=== PATIENT | male | born 1955 | race Caucasian/White ===

== ENCOUNTER 2020-04-01 04:07 | Inpatient (IN) | payer MEDICAID, MEDICARE ==
--- NOTE | 2020-04-01 04:27 | EDM.PDOC ---
ED HPI GENERAL MEDICAL PROBLEM - General Chief Complaint: Respiratory Problem Stated Complaint: [facility] Time Seen by Provider: 04/01/20 04:16 Source of Information: Reports: Patient, EMS, RN Notes Reviewed History Limitations: Reports: No Limitations - History of Present Illness INITIAL COMMENTS - FREE TEXT/NARRATIVE: 65-year-old gentleman presents emergency department today via EMS services for increasing shortness of breath, he has known history of chronic obstructive pulmonary disease on chronic prednisone however he has stopped taking this medication because it believes it causes him palpitations and refuses any steroid treatment at this time. He did receive an albuterol treatment at home DuoNeb in route arrived on CPAP however now is using oxygen via nasal cannula - Related Data Allergies Allergy/AdvReac Type Severity Reaction Status Date / Time varenicline tartrate Allergy Airway Verified 04/01/20 04:24 [From Chantix] Tightness Home Meds: Home Meds Albuterol [Ventolin HFA] 8 gm IH Q4HR PRN 12/15/15 [History] Albuterol/Ipratropium [Take Home: Albuterol/Ipratropium, 4 Neb Pack] 1 dose INH Q4HR 12/15/15 [History] Budesonide/Formoterol Fumarate [Symbicort 80-4.5 Mcg Inhaler] 2 puff INH BID 06/22 [History] Nicotine [Nicoderm CQ] 21 patch TD DAILY 12/15/15 [History] Past Medical History Respiratory History: Reports: COPD Dermatologic History: Reports: Other (See Below) Other Dermatologic History: skin problem - Infectious Disease History Infectious Disease History: Reports: Chicken Pox, Measles, Mumps Social & Family History - Tobacco Use Smoking Status *Q: Current Every Day Smoker ED ROS GENERAL - Review of Systems Review Of Systems: See Below Constitutional: Denies: Fever HEENT: Reports: No Symptoms Respiratory: Reports: Shortness of Breath, Wheezing, Sputum Cardiovascular: Reports: Dyspnea on Exertion GI/Abdominal: Reports: No Symptoms : Reports: No Symptoms ED EXAM, GENERAL - Physical Exam Exam: See Below General Appearance: Alert, Mild Distress Respiratory/Chest: Respiratory Distress (1 and 2 word sentences), Decreased Breath Sounds, Accessory Muscle Use. No: Wheezing Cardiovascular: Regular Rate, Rhythm, No Murmur GI/Abdominal: Soft, Non-Tender, Hernia (Umbilical) Course - Vital Signs Last Recorded V/S: Last Vital Signs Temp 98.3 F 04/01/20 04:17 Pulse 100 04/01/20 05:40 Resp 20 04/01/20 05:40 BP 160/94 H 04/01/20 05:40 Pulse Ox 90 L 04/01/20 05:40 - Orders/Labs/Meds Orders: Active Orders 24 hr Category Date Time Status EKG Documentation Completion [RC] ASDIRECTED Care 04/01/20 04:18 Active Peripheral IV Care [RC] . DIRECTED Care 04/01/20 05:38 Ordered RT Aerosol Therapy [RC] ASDIRECTED Care 04/01/20 05:40 Ordered Chest 2V [CR] Urgent Exams 04/01/20 04:17 Taken Sodium Chloride 0.9% @ 125 MLS/HR (1000ml) Med 04/01/20 05:38 Ordered Sodium Chloride 0.9% [Normal Saline] 1,000 ml IV ASDIRECTED Sodium Chloride 0.9% [Saline Flush] Med 04/01/20 05:38 Ordered 10 ml FLUSH ASDIRECTED PRN Peripheral IV Insertion Adult [OM.PC] Urgent Oth 04/01/20 05:38 Ordered EKG 12 Lead [EK] Urgent Ther 04/01/20 04:17 Ordered Medication Orders Sodium Chloride (Normal Saline) 1,000 mls @ 125 mls/hr IV ASDIRECTED ONE Stop: 04/01/20 13:37 Sodium Chloride (Saline Flush) 10 ml FLUSH ASDIRECTED PRN PRN Reason: Keep Vein Open Labs: Laboratory Tests 04/01/20 04/01/20 Range/Units 04:25 04:25 WBC 12.4 H (4.5-11.0) K/uL RBC 5.57 (4.30-5.90) M/uL Hgb 16.6 H (12.0-15.0) g/dL Hct 53.3 (40.0-54.0) % MCV 96 (80-98) fL MCH 30 (27-31) pg MCHC 31 L (32-36) % Plt Count 200 (150-400) K/uL Neut % (Auto) 68 H (36-66) % Lymph % (Auto) 16 L (24-44) % [place] % (Auto) 7 H (2-6) % Eos % (Auto) 8 H (2-4) % Baso % (Auto) 1 (0-1) % Sodium 140 (140-148) mmol/L Potassium 4.4 (3.6-5.2) mmol/L Chloride 103 (100-108) mmol/L Carbon Dioxide 28 (21-32) mmol/L Anion Gap 9.2 (5.0-14.0) mmol/L BUN 16 (7-18) mg/dL Creatinine 1.1 (0.8-1.3) mg/dL Est Cr Clr Drug Dosing 68.21 mL/min Estimated GFR (MDRD) > 60 (>60) Glucose 132 H (74-106) mg/dL Calcium 8.6 (8.5-10.1) mg/dL Total Bilirubin 0.2 (0.2-1.0) mg/dL AST 17 (15-37) U/L ALT 31 (12-78) U/L Alkaline Phosphatase 95 (46-116) U/L Troponin I < 0.017 (0.000-0.056) ng/mL Total Protein 7.2 (6.4-8.2) g/dL Albumin 3.5 (3.4-5.0) g/dL Globulin 3.7 H (2.3-3.5) g/dL Albumin/Globulin Ratio 1.0 L (1.2-2.2) Meds: Medications Generic Name Dose Route Start Last Admin Trade Name Freq PRN Reason Stop Dose Admin Sodium Chloride 1,000 mls @ 125 mls/hr 04/01/20 05:38 Normal Saline IV 04/01/20 13:37 ASDIRECTED ONE Sodium Chloride 10 ml 04/01/20 05:38 Saline Flush FLUSH ASDIRECTED PRN Keep Vein Open Discontinued Medications Generic Name Dose Route Start Last Admin Trade Name Freq PRN Reason Stop Dose Admin Albuterol/Ipratropium 3 ml 04/01/20 05:39 04/01/20 05:51 Duoneb 3.0-0.5 Mg/3 Ml NEB 04/01/20 05:40 3 ml ONETIME ONE Administration Doxycycline Hyclate 100 mg 04/01/20 05:39 04/01/20 05:50 Vibramycin PO 04/01/20 05:40 100 mg ONETIME ONE Administration Methylprednisolone Sodium Succinate 125 mg 04/01/20 05:39 Solu-Medrol IVPUSH 04/01/20 05:40 ONETIME ONE Departure - Departure Time of Disposition: 05:56 Disposition: Admitted As Inpatient 65 Condition: Fair Clinical Impression: COPD exacerbation - Discharge Information Referrals: Percy Sidhu MD [Primary Care Provider] - Forms: ED Department Discharge Sepsis Event Note - Evaluation Sepsis Screening Result: No Definite Risk - Focused Exam Vital Signs: Vital Signs Temp Pulse Resp BP Pulse Ox 04/01/20 05:40 100 20 160/94 H 90 L 04/01/20 05:11 94 17 138/81 94 L 04/01/20 05:04 94 18 138/82 96 04/01/20 04:17 98.3 F 97 20 185/94 H 96 Date Exam was Performed: 04/01/20 Time Exam was Performed: 05:54 - My Orders Last 24 Hours: My Active Orders 04/01/20 04:17 Chest 2V [CR] Urgent EKG 12 Lead [EK] Urgent 04/01/20 04:18 EKG Documentation Completion [RC] ASDIRECTED 04/01/20 05:38 Peripheral IV Care [RC] . DIRECTED Sodium Chloride 0.9% @ 125 MLS/HR (1000ml) Sodium Chloride 0.9% [Normal Saline] 1,000 ml IV ASDIRECTED Sodium Chloride 0.9% [Saline Flush] 10 ml FLUSH ASDIRECTED PRN Peripheral IV Insertion Adult [OM.PC] Urgent 04/01/20 05:40 RT Aerosol Therapy [RC] ASDIRECTED - Assessment/Plan Last 24 Hours: My Active Orders 04/01/20 04:17 Chest 2V [CR] Urgent EKG 12 Lead [EK] Urgent 04/01/20 04:18 EKG Documentation Completion [RC] ASDIRECTED 04/01/20 05:38 Peripheral IV Care [RC] . DIRECTED Sodium Chloride 0.9% @ 125 MLS/HR (1000ml) Sodium Chloride 0.9% [Normal Saline] 1,000 ml IV ASDIRECTED Sodium Chloride 0.9% [Saline Flush] 10 ml FLUSH ASDIRECTED PRN Peripheral IV Insertion Adult [OM.PC] Urgent 04/01/20 05:40 RT Aerosol Therapy [RC] ASDIRECTED Plan: Assessment Acuity = acute Site and laterality = COPD exacerbation with hypoxia Etiology = unknown Manifestations = hypoxic Location of injury = Home Lab values = WBC elevated 12.4 consistent leukocytosis, CMP unremarkable troponin is negative EKG demonstrates a sinus rhythm no signs of ST elevation or depression chest x-ray I did review films myself I cannot appreciate any acute process, the official read from radiology is pending Plan Thus far has been given 125 mg Solu-Medrol 100 mg doxycycline DuoNeb while in the emergency department he maintained his oxygen saturation at rest however with any amount of exertion he will become hypoxic. Call discussed case with hospitalist on-call at [phone] he kindly agreed to come and evaluate the patient emergency department for admission This note was dictated using [employer] voice recognition software please call with any questions on syntax or grammar.
[2020-04-01] MEDS ORDERED: Sodium Chloride 0.9% 1,000 ML IV ONE (05:38)
[2020-04-01] MEDS ORDERED: Sodium Chloride 0.9% 10 ML Syringe FLUSH PRN ×2 (05:38→08:31)
[2020-04-01] MEDS ORDERED: methylPREDNISolone Sodium Succinate 125 MG/2 ML SDV IVPUSH ONE (05:39)
[2020-04-01] MEDS ORDERED: Albuterol/Ipratropium 3.0-0.5 MG/3 ML Neb Soln NEB ONE (05:39)
[2020-04-01] MEDS ORDERED: Doxycycline 100 MG Cap PO ONE (05:39)
--- NOTE | 2020-04-01 07:37 | PCM.HP.2 ---
H&P History of Present Illness - General Date of Service: 04/01/20 Admit Problem/Dx: Admission Diagnosis/Problem Admission Diagnosis/Problem Hypoxia Source of Information: Patient, Provider, RN Notes Reviewed History Limitations: Reports: No Limitations - History of Present Illness Initial Comments - Free Text/Narative: Mr. Schrader is a 65-year-old gentleman who was admitted through the emergency department with hypoxia and shortness of breath secondary to COPD exacerbation. He has a longstanding history of COPD as well as smoking and continued to smoke up until the time of admission. He does not yet require use of supplemental oxygen at home. He felt well through the day yesterday but in the late evening noted progressive increase in shortness of breath. He presented to the emergency department early this morning and was found to be hypoxic. White blood cell count is modestly elevated, chest x-ray shows no obvious infiltrates. He was felt to have probable COPD exacerbation and was started on doxycycline, nebulizer therapy, and Solu-Medrol. Despite these interventions he experienced persistent hypoxia and has required use of supplemental oxygen while in the emergency department. - Related Data Allergies/Adverse Reactions: Allergies Allergy/AdvReac Type Severity Reaction Status Date / Time varenicline tartrate Allergy Airway Verified 04/01/20 04:24 [From Chantix] Tightness Home Medications: Home Meds Albuterol [Ventolin HFA] 8 gm IH Q4HR PRN 12/15/15 [History] Albuterol/Ipratropium [Take Home: Albuterol/Ipratropium, 4 Neb Pack] 1 dose INH Q4HR 12/15/15 [History] Budesonide/Formoterol Fumarate [Symbicort 80-4.5 Mcg Inhaler] 2 puff INH BID 06/22 [History] Nicotine [Nicoderm CQ] 21 patch TD DAILY 12/15/15 [History] Past Medical History HEENT History: Reports: None Cardiovascular History: Reports: None Respiratory History: Reports: COPD Gastrointestinal History: Reports: Other (See Below) Other Gastrointestinal History: umbilical herina Genitourinary History: Reports: None Musculoskeletal History: Reports: Arthritis Neurological History: Reports: None Endocrine/Metabolic History: Reports: None Hematologic History: Reports: None Immunologic History: Reports: None Oncologic (Cancer) History: Reports: None Dermatologic History: Reports: Other (See Below) Other Dermatologic History: skin problem - Infectious Disease History Infectious Disease History: Reports: Chicken Pox, Measles, Mumps Social & Family History - Tobacco Use Smoking Status *Q: Current Every Day Smoker Years of Tobacco use: 50 Packs/Tins Daily: 0.5 - Caffeine Use Caffeine Use: Reports: Tea - Recreational Drug Use Recreational Drug Use: Yes Recreational Drug Type: Reports: Marijuana/Hashish H&P Review of Systems - Review of Systems: Review Of Systems: See Below General: Denies: Fever, Chills HEENT: Reports: No Symptoms Pulmonary: Reports: Shortness of Breath, Wheezing. Denies: Pleuritic Chest Pain , Cough, Sputum, Hemoptysis Cardiovascular: Reports: Dyspnea on Exertion, Edema. Denies: Chest Pain, Palpitations, Orthopnea, PND, Lightheadedness Gastrointestinal: Reports: No Symptoms Genitourinary: Reports: No Symptoms Musculoskeletal: Reports: No Symptoms Skin: Reports: No Symptoms Psychiatric: Reports: No Symptoms Neurological: Reports: No Symptoms Hematologic/Lymphatic: Reports: No Symptoms Immunologic: Reports: No Symptoms Exam - Exam Exam: See Below - Vital Signs Vital Signs: Last Vital Signs Temp 98.3 F 04/01/20 04:17 Pulse 85 04/01/20 07:08 Resp 18 04/01/20 07:08 BP 138/87 04/01/20 07:08 Pulse Ox 93 L 04/01/20 07:08 Weight: 215 lb - Exam Quality Assessment: Supplemental Oxygen, DVT Prophylaxis General: Alert, Oriented, Cooperative, Moderate Distress HEENT: Conjunctiva Clear, Hearing Intact, Mucosa Moist & [place], Normal Nasal Septum, Posterior Pharynx Clear, Pupils Equal Neck: Supple, Trachea Midline, +2 Carotid Pulse wo Bruit Lungs: Decreased Breath Sounds, Wheezing. No: Crackles, Rales, Rhonchi, Rub Cardiovascular: Regular Rate, Regular Rhythm, Normal S1, Normal S2. No: Systolic Murmur, Diastolic Murmur GI/Abdominal Exam: Soft, Non-Tender, No Organomegaly, No Distention Extremities: Non-Tender, No Pedal Edema Skin: Warm, Dry, Intact Neurological: Cranial Nerves Intact, Strength Equal Bilateral, Normal Speech, Normal Tone, Sensation Intact. No: Focal Deficit Neuro Extensive - Mental Status: Alert, Oriented x3, Normal Mood/Affect, Normal Cognition, Memory Intact - Patient Data Lab Results Last 24 hrs: Laboratory Results - last 24 hr 04/01/20 04/01/20 04/01/20 Range/Units 04:25 04:25 04:50 WBC 12.4 H (4.5-11.0) K/uL RBC 5.57 (4.30-5.90) M/uL Hgb 16.6 H (12.0-15.0) g/dL Hct 53.3 (40.0-54.0) % MCV 96 (80-98) fL MCH 30 (27-31) pg MCHC 31 L (32-36) % Plt Count 200 (150-400) K/uL Neut % (Auto) 68 H (36-66) % Lymph % (Auto) 16 L (24-44) % [place] % (Auto) 7 H (2-6) % Eos % (Auto) 8 H (2-4) % Baso % (Auto) 1 (0-1) % Sodium 140 (140-148) mmol/L Potassium 4.4 (3.6-5.2) mmol/L Chloride 103 (100-108) mmol/L Carbon Dioxide 28 (21-32) mmol/L Anion Gap 9.2 (5.0-14.0) mmol/L BUN 16 (7-18) mg/dL Creatinine 1.1 (0.8-1.3) mg/dL Est Cr Clr Drug Dosing 68.21 mL/min Estimated GFR (MDRD) > 60 (>60) Glucose 132 H (74-106) mg/dL Lactic Acid 1.5 (0.4-2.0) mmol/L Calcium 8.6 (8.5-10.1) mg/dL Total Bilirubin 0.2 (0.2-1.0) mg/dL AST 17 (15-37) U/L ALT 31 (12-78) U/L Alkaline Phosphatase 95 (46-116) U/L Troponin I < 0.017 (0.000-0.056) ng/mL Total Protein 7.2 (6.4-8.2) g/dL Albumin 3.5 (3.4-5.0) g/dL Globulin 3.7 H (2.3-3.5) g/dL Albumin/Globulin Ratio 1.0 L (1.2-2.2) Result Diagrams: 04/01/20 04:25 04/01/20 04:25 Sepsis Event Note - Evaluation Sepsis Screening Result: No Definite Risk - Focused Exam Vital Signs: Vital Signs Temp Pulse Resp BP Pulse Ox 04/01/20 07:08 85 18 138/87 93 L 04/01/20 06:38 88 21 H 140/90 91 L 04/01/20 06:11 88 18 158/91 H 93 L 04/01/20 05:40 100 20 160/94 H 90 L 04/01/20 05:11 94 17 138/81 94 L 04/01/20 05:04 94 18 138/82 96 04/01/20 04:17 98.3 F 97 20 185/94 H 96 Date Exam was Performed: 04/01/20 Time Exam was Performed: 07:55 *Q Meaningful Use (ADM) - VTE Risk Assess *Q Each Risk Factor Represents 1 Point: Obesity ( BMI > 25 kg/m2), Abnormal Pulmonary Function (COPD) Total Score 1 Point Risk Factors: 2 Each Risk Factor Represents 2 Points: Age 60 - 74 Years Total Score 2 Point Risk Factors: 2 Each Risk Factor Represents 3 Points: None Total Score 3 Point Risk Factors: 0 Each Risk Factor Represents 5 Points: None Total Score 5 Point Risk Factors: 0 Venous Thromboembolism Risk Factor Score *Q: 4 Problem List Initiated/Reviewed/Updated: Yes Orders Last 24hrs: Active Orders 24 hr Category Date Time Status Patient Status Manage Transfer [TRANSFER] Routine ADT 04/01/20 07:26 Ordered EKG Documentation Completion [RC] ASDIRECTED Care 04/01/20 04:18 Active Peripheral IV Care [RC] . DIRECTED Care 04/01/20 05:38 Active RT Aerosol Therapy [RC] ASDIRECTED Care 04/01/20 05:40 Active Chest 2V [CR] Urgent Exams 04/01/20 04:17 Taken Sodium Chloride 0.9% [Normal Saline] 1,000 ml Med 04/01/20 05:38 Active IV ASDIRECTED Sodium Chloride 0.9% [Saline Flush] Med 04/01/20 05:38 Active 10 ml FLUSH ASDIRECTED PRN Peripheral IV Insertion Adult [OM.PC] Urgent Oth 04/01/20 05:38 Ordered Resuscitation Status Routine Resus Stat 04/01/20 07:29 Ordered EKG 12 Lead [EK] Urgent Ther 04/01/20 04:17 Ordered Medication Orders Sodium Chloride (Normal Saline) 1,000 mls @ 125 mls/hr IV ASDIRECTED ONE Stop: 04/01/20 13:37 Last Admin: 04/01/20 06:07 Dose: 125 mls/hr Sodium Chloride (Saline Flush) 10 ml FLUSH ASDIRECTED PRN PRN Reason: Keep Vein Open Last Admin: 04/01/20 06:10 Dose: 10 ml Assessment/Plan Comment:: ASSESSMENT AND PLAN COPD EXACERBATION-specific etiology of exacerbation not apparent, probably allergy versus infection. He feels somewhat improved since arriving in the emergency department but continues to require supplemental oxygen. -Inhaler therapy -Doxycycline 100 mg IV every 12 hours -Supplemental oxygen as needed -Solu-Medrol 40 mg IV every 6 hours HYPOXIA-secondary to COPD exacerbation -Management as above MAINTENANCE ISSUES -DVT prophylaxis; Lovenox 40 mg subcu daily -GI prophylaxis; not indicated -Grande catheter; not indicated -Nutrition; 2 g sodium diet -Nicotine dependence; nicotine patch CODE STATUS-FULL CODE ADMISSION STATUS-patient will be admitted to inpatient status, expect at least a 2 night hospital stay for evaluation and management of problems as outlined above. At the time of this admission I do not reasonably expected evaluation and management of this problem will require more than a 96 hour hospital stay. DISPOSITION-anticipate discharge to home after the hospital stay. PRIMARY CARE PROVIDER-Dr. Sidhu - Mortality Measure Prognosis:: Good
[2020-04-01] MEDS ORDERED: Acetaminophen 325 MG Tab PO PRN (08:31)
[2020-04-01] MEDS ORDERED: Polyethylene Glycol 3350 Powder 17 GM Packet PO PRN (08:31)
[2020-04-01] MEDS ORDERED: Ondansetron 4 MG/2 ML SDV IV PRN (08:31)
[2020-04-01] MEDS: Albuterol 8 GM Inhaler INH PRN ×3 (08:47→18:01)
[2020-04-01] MEDS ORDERED: Doxycycline 100 MG in Sodium Chloride 0.9% 100 ML IV SCH (09:00)
[2020-04-01] MEDS ORDERED: Glycopyrrolate 15.6 MCG Cap.W.Dev Kit of 6 IH SCH (09:00)
[2020-04-01] MEDS ORDERED: Nicotine 7 MG/24 Hr Patch TRDERM SCH (09:00)
[2020-04-01] MEDS: Fluticasone-Salmeterol 113-14 MCG Powder Inhalant INH SCH ×2 (09:07→21:08)
[2020-04-01] MEDS: Nicotine 21 MG/24 Hr Patch TRDERM SCH (09:34)
[2020-04-01] MEDS: Enoxaparin 40 MG/0.4 ML Syringe SUBCUT SCH (09:34)
--- NOTE | 2020-04-01 10:14 | CR ---
CHEST: 2 view CLINICAL HISTORY:SOB COMPARISON:2010 FINDINGS: The heart size, pulmonary vascularity and hilar structures are normal. No infiltrate effusion or pneumothorax is seen. Lungs are hyperaerated. IMPRESSION: No acute cardiopulmonary process. Hyperaeration could represent some air trapping.
[2020-04-01] MEDS: methylPREDNISolone Sodium Succinate 40 MG/1 ML SDV IVPUSH SCH ×2 (14:57→21:15)
[2020-04-01] MEDS: Doxycycline 100 MG in Sodium Chloride 0.9% 100 ML IV SCH (15:04)
[2020-04-01] MEDS: Glycopyrrolate 15.6 MCG Cap.W.Dev Kit of 6 IH SCH (21:11)
[2020-04-02] MEDS: Doxycycline 100 MG in Sodium Chloride 0.9% 100 ML IV SCH (03:51)
[2020-04-02] MEDS: Albuterol 8 GM Inhaler INH PRN (03:52)
[2020-04-02] MEDS: methylPREDNISolone Sodium Succinate 40 MG/1 ML SDV IVPUSH SCH (06:35)
[2020-04-02] MEDS: Nicotine 21 MG/24 Hr Patch TRDERM SCH (08:18)
[2020-04-02] MEDS: Enoxaparin 40 MG/0.4 ML Syringe SUBCUT SCH (08:20)
[2020-04-02] MEDS: Fluticasone-Salmeterol 113-14 MCG Powder Inhalant INH SCH (08:24)
[2020-04-02] MEDS: Glycopyrrolate 15.6 MCG Cap.W.Dev Kit of 6 IH SCH (08:24)
[2020-04-02 08:37] VITALS: BP 156/93; PULSE 99
--- NOTE | 2020-04-02 09:19 | PCM.DCSUM1 ---
Discharge Summary - Hospital Course Brief History: Mr. Schrader is a 65-year-old gentleman who was admitted through the emergency department with shortness of breath and hypoxia secondary to COPD exacerbation and bronchitis. - Discharge Data Discharge Date: 04/02/20 Discharge Disposition: Home, Self-Care 01 Condition: Fair - Referral to Home Health Primary Care Physician: Percy Sidhu MD - Discharge Diagnosis/Problem(s) (1) Hypoxia SNOMED Code(s): 177967306 ICD Code: R09.02 - HYPOXEMIA Status: Acute Current Visit: Yes (2) COPD exacerbation SNOMED Code(s): 035500341 ICD Code: J44.1 - CHRONIC OBSTRUCTIVE PULMONARY DISEASE W (ACUTE) EXACERBATION Status: Acute Current Visit: Yes (3) Tobacco use disorder SNOMED Code(s): 829600675 ICD Code: F17.200 - NICOTINE DEPENDENCE, UNSPECIFIED, UNCOMPLICATED Status : Chronic Current Visit: No - Patient Summary/Data Hospital Course: Mr. Schrader is a 65-year-old gentleman who was admitted through the emergency department with hypoxia and shortness of breath secondary to COPD exacerbation. He has a longstanding history of COPD as well as smoking and continued to smoke up until the time of admission. He does not yet require use of supplemental oxygen at home. He felt well through the day yesterday but in the late evening noted progressive increase in shortness of breath. He presented to the emergency department early this morning and was found to be hypoxic. White blood cell count is modestly elevated, chest x-ray shows no obvious infiltrates. He was felt to have probable COPD exacerbation and was started on doxycycline, nebulizer therapy, and Solu-Medrol. Despite these interventions he experienced persistent hypoxia and has required use of supplemental oxygen while in the emergency department. On admission he was continued on doxycycline and Solu-Medrol. Inhaler therapies were used as needed. By the following morning he had improved to the point that he felt he would like to be discharged home. Initially he had been admitted to inpatient status but improved more rapidly than anticipated and will be discharged home today after only 1 night. He continued to require use of supplemental oxygen and was qualified for home oxygen prior to discharge. He had a documented oxygen saturation of 88% at rest on the morning of discharge. He will be discharged home with additional 6 days of oral antibiotic therapy with doxycycline. He will also take probiotic therapy with Culturelle twice daily. He will also be on Solu-Medrol 40 mg daily for an additional 4 days. Follow-up appointment will be scheduled with his primary care provider within 1 week. Activity will be as tolerated and he will resume his usual diet. - Patient Instructions Diet: Usual Diet as Tolerated Activity: As Tolerated Other/Special Instructions: Please arrange for home oxygen need to liters per minute via nasal cannula. Please schedule follow-up appointment with primary care provider within 1 week. - Discharge Plan *PRESCRIPTION DRUG MONITORING PROGRAM REVIEWED*: Not Applicable *COPY OF PRESCRIPTION DRUG MONITORING REPORT IN PATIENT ROEL: Not Applicable Prescriptions/Med Rec: Doxycycline [Vibra-Tabs] 100 mg PO Q12HR #12 tab Lactobacillus Rhamnosus GG [Culturelle] 1 cap PO BID #60 cap predniSONE [Prednisone] 40 mg PO DAILY #8 tablet Home Medications: Home Meds Albuterol [Ventolin HFA] 8 gm IH Q4HR PRN 12/15/15 [History] Albuterol/Ipratropium [Take Home: Albuterol/Ipratropium, 4 Neb Pack] 1 dose INH Q4HR 12/15/15 [History] Budesonide/Formoterol Fumarate [Symbicort 80-4.5 MCG] 2 puff INH BID 12/15/15 [ History] Nicotine [Nicoderm CQ] 21 patch TD DAILY 12/15/15 [History] Doxycycline [Vibra-Tabs] 100 mg PO Q12HR #12 tab 04/02/20 [Rx] Lactobacillus Rhamnosus GG [Culturelle] 1 cap PO BID #60 cap 04/02/20 [Rx] predniSONE [Prednisone] 40 mg PO DAILY #8 tablet 04/02/20 [Rx] Oxygen Therapy Mode: Nasal Cannula Oxygen Flow Rate (L/min): 2 Maintain SPO2% less than: 92 Maintain SpO2% greater than: 88 Referrals: Percy Sidhu MD [Primary Care Provider] - - Discharge Summary/Plan Comment DC Time >30 min.: No - Patient Data Vitals - Most Recent: Last Vital Signs Temp 98.4 F 04/02/20 07:00 Pulse 99 04/02/20 07:00 Resp 22 H 04/02/20 07:00 BP 156/93 H 04/02/20 07:00 Pulse Ox 88 L 04/02/20 09:08 Weight - Most Recent: 218 lb I&O - Last 24 hours: Intake & Output 04/01/20 04/02/20 04/02/20 22:59 06:59 14:59 Intake Total 520 360 Output Total 450 550 200 Balance 70 -550 160 Lab Results - Last 24 hrs: Laboratory Results - last 24 hr 04/02/20 04/02/20 Range/Units 04:57 04:57 WBC 14.7 H (4.5-11.0) K/uL RBC 5.23 (4.30-5.90) M/uL Hgb 15.6 H (12.0-15.0) g/dL Hct 50.1 (40.0-54.0) % MCV 96 (80-98) fL MCH 30 (27-31) pg MCHC 31 L (32-36) % Plt Count 200 (150-400) K/uL Neut % (Auto) 86 H (36-66) % Lymph % (Auto) 9 L (24-44) % [place] % (Auto) 5 (2-6) % Eos % (Auto) 0 L (2-4) % Baso % (Auto) 0 (0-1) % Sodium 138 L (140-148) mmol/L Potassium 4.8 (3.6-5.2) mmol/L Chloride 102 (100-108) mmol/L Carbon Dioxide 28 (21-32) mmol/L Anion Gap 12.8 (5.0-14.0) mmol/L BUN 22 H (7-18) mg/dL Creatinine 1.1 (0.8-1.3) mg/dL Est Cr Clr Drug Dosing 68.21 mL/min Estimated GFR (MDRD) > 60 (>60) Glucose 135 H (74-106) mg/dL Calcium 8.7 (8.5-10.1) mg/dL Med Orders - Current: Current Medications Acetaminophen (Tylenol) 650 mg PO Q4H PRN PRN Reason: Pain (Mild 1-3)/fever Albuterol (Ventolin Hfa) 0 gm INH Q4H PRN PRN Reason: Wheezing Last Admin: 04/02/20 03:52 Dose: 2 puff Enoxaparin Sodium (Lovenox) 40 mg SUBCUT DAILY KIEL Last Admin: 04/02/20 08:20 Dose: 40 mg Glycopyrrolate (Seebri Neohaler) 15.6 mcg IH BIDRT [facility] Last Admin: 04/02/20 08:24 Dose: 15.6 mcg Doxycycline Hyclate 100 mg/ (Sodium Chloride) 100 mls @ 100 mls/hr IV Q12H [facility] Last Admin: 04/02/20 03:51 Dose: 100 mls/hr Methylprednisolone Sodium Succinate (Solu-Medrol) 40 mg IVPUSH Q8H [facility] Last Admin: 04/02/20 06:35 Dose: 40 mg Nicotine (Habitrol) 21 mg TRDERM DAILY [facility] Last Admin: 04/02/20 08:18 Dose: 21 mg Ondansetron HCl (Zofran) 4 mg IV Q4H PRN PRN Reason: Nausea/Vomiting Polyethylene Glycol (Miralax) 17 gm PO DAILY PRN PRN Reason: Constipation Fluticasone/Salmeterol (Fluticasone-Salmeterol 113-14 Mcg Powder Inh) 1 puff INH BIDRT [facility] Last Admin: 04/02/20 08:24 Dose: 1 puff Sodium Chloride (Saline Flush) 10 ml FLUSH ASDIRECTED PRN PRN Reason: Keep Vein Open Discontinued Medications Albuterol/Ipratropium (Duoneb 3.0-0.5 Mg/3 Ml) 3 ml NEB ONETIME ONE Stop: 04/01/20 05:40 Last Admin: 04/01/20 05:51 Dose: 3 ml Doxycycline Hyclate (Vibramycin) 100 mg PO ONETIME ONE Stop: 04/01/20 05:40 Last Admin: 04/01/20 05:50 Dose: 100 mg Glycopyrrolate (Seebri Neohaler) 15.6 mcg IH BIDRT [facility] Sodium Chloride (Normal Saline) 1,000 mls @ 125 mls/hr IV ASDIRECTED ONE Stop: 04/01/20 13:37 Last Admin: 04/01/20 06:07 Dose: 125 mls/hr Doxycycline Hyclate 100 mg/ (Sodium Chloride) 100 mls @ 100 mls/hr IV Q12H [facility] Methylprednisolone Sodium Succinate (Solu-Medrol) 125 mg IVPUSH ONETIME ONE Stop: 04/01/20 05:40 Last Admin: 04/01/20 06:08 Dose: 125 mg Nicotine (Habitrol) 7 mg TRDERM DAILY KIEL Sodium Chloride (Saline Flush) 10 ml FLUSH ASDIRECTED PRN PRN Reason: Keep Vein Open Last Admin: 04/01/20 06:10 Dose: 10 ml - Exam Quality Assessment: Reports: DVT Prophylaxis General: Reports: Alert, Oriented, Cooperative, Mild Distress Lungs: Reports: Decreased Breath Sounds, Wheezing. Denies: Crackles, Rales, Rhonchi, Rub Cardiovascular: Reports: Regular Rate, Regular Rhythm, No Murmurs GI/Abdominal Exam: Soft, Non-Tender, No Organomegaly, No Distention Extremities: Non-Tender, No Pedal Edema
== END 2020-04-02 13:38 | disposition home or self-care (01) | DRG 192 ==
LOC: JP.ED 04:07 → JP.ICU 07:26
PROVIDERS: ADMIT Hospitalist; ATTEND Hospitalist
DX: J44.1 Chronic obstructive pulmonary disease with (acute) exacerbation (principal); R09.02 Hypoxemia; F17.200 Nicotine dependence, unspecified, uncomplicated; Z88.8 Allergy status to other drugs, medicaments and biological substances; Z79.899 Other long term (current) drug therapy
CPT/HCPCS: 36415; 71046 ×2; 80053; 83605; 84484; 85025; 93005; 94640; A9270; J2930; J7030; 80048; 94762; 96374; 99285-25; J1650; J2920; J3490; J7050; J7620-GY

== ENCOUNTER 2021-04-15 11:04 | Emergency (ER) | payer MEDICARE ==
[2021-04-15 12:44] VITALS: BP 147/86; PULSE 111
[2021-04-15] MEDS ORDERED: Lactated Ringers 1,000 ML IV SCH (13:45)
--- NOTE | 2021-04-15 13:47 | EDM.PDOC ---
ED HPI GENERAL MEDICAL PROBLEM - General Chief Complaint: Respiratory Problem Stated Complaint: PAIN IN UPPER LUNGS OF YESTERDAY Time Seen by Provider: 04/15/21 13:44 Source of Information: Reports: Patient History Limitations: Reports: No Limitations - History of Present Illness INITIAL COMMENTS - FREE TEXT/NARRATIVE: pt became more sob yesterday. He is coughing alot. Onset: Other ( started yesterday. ) Duration: Hour(s): Location: Reports: Chest, Generalized, Other ( very sob. ) Associated Symptoms: Reports: Chest Pain, Cough Left Leg Pain Score (Numeric/FACES): 8 - Related Data Allergies Allergy/AdvReac Type Severity Reaction Status Date / Time varenicline tartrate Allergy Airway Verified 04/15/21 13:04 [From Chantix] Tightness Home Meds: Home Meds Albuterol [Ventolin HFA] 8 gm IH Q4HR PRN 12/15/15 [History] Albuterol/Ipratropium [Take Home: Albuterol/Ipratropium, 4 Neb Pack] 1 dose INH Q4HR PRN 12/15/15 [History] Budesonide/Formoterol Fumarate [Symbicort 80-4.5 MCG] 2 puff INH BID 12/15/15 [History] Nicotine [Nicoderm CQ] 21 patch TD DAILY 12/15/15 [History] predniSONE [Prednisone] 5 mg PO DAILY 04/15/21 [History] Past Medical History HEENT History: Reports: None Cardiovascular History: Reports: None Respiratory History: Reports: COPD Gastrointestinal History: Reports: Other (See Below) Other Gastrointestinal History: umbilical herina Genitourinary History: Reports: Pyelonephritis Musculoskeletal History: Reports: Fracture Neurological History: Reports: None Endocrine/Metabolic History: Reports: None Hematologic History: Reports: None Immunologic History: Reports: None Oncologic (Cancer) History: Reports: None Dermatologic History: Reports: Other (See Below) Other Dermatologic History: skin problem - Infectious Disease History Infectious Disease History: Reports: Chicken Pox, Measles, Mumps Social & Family History - Tobacco Use Tobacco Use Status *Q: Light Tobacco User Years of Tobacco use: 56 Packs/Tins Daily: 0.5 Tobacco Use Comment: also uses patch. patient was up to 2 packs per day. - Caffeine Use Caffeine Use: Reports: Coffee, Tea - Recreational Drug Use Recreational Drug Use: Yes Recreational Drug Type: Reports: Marijuana/Hashish Recreational Drug Use Frequency: Daily ED ROS GENERAL - Review of Systems Review Of Systems: See Below Constitutional: Reports: Chills, Weakness, Other ( sob) HEENT: Reports: No Symptoms Respiratory: Reports: Shortness of Breath, Wheezing, Cough, Other (pt has a history of copd) Cardiovascular: Reports: No Symptoms Endocrine: Reports: No Symptoms GI/Abdominal: Reports: No Symptoms : Reports: No Symptoms Musculoskeletal: Reports: No Symptoms Skin: Reports: No Symptoms ED EXAM, GENERAL - Physical Exam Exam: See Below Free Text/Narrative:: pt arrived with increased sob and cough. He is not immunized for covid. He has not been out and about. Exam Limited By: No Limitations General Appearance: Alert, Anxious, Mild Distress Ears: Normal TMs Nose: Normal Inspection Throat/Mouth: Normal Inspection Head: Atraumatic Neck: Normal Inspection Respiratory/Chest: Decreased Breath Sounds, Wheezing Cardiovascular: Regular Rate, Rhythm GI/Abdominal: Soft, Non-Tender (Male) Exam: Deferred Rectal (Males) Exam: Deferred Back Exam: Normal Inspection Extremities: Other ( trace edema same as usual. ) Psychiatric: Anxious Course - Vital Signs Last Recorded V/S: Last Vital Signs Temp 36.8 C 04/15/21 13:01 Pulse 111 H 04/15/21 13:01 Resp 24 H 04/15/21 13:01 BP 147/86 H 04/15/21 13:01 Pulse Ox 93 L 04/15/21 13:01 - Orders/Labs/Meds Orders: Active Orders 24 hr Category Date Time Status RT Aerosol Therapy [RC] ASDIRECTED Care 04/15/21 14:56 Active Lactated Ringers [Ringers, Lactated] 1,000 ml Med 04/15/21 13:45 Active IV ASDIRECTED Sodium Chloride 0.9% [Saline Flush] Med 04/15/21 13:51 Active 10 ml FLUSH ASDIRECTED PRN Isolation [COMM] Stat Oth 04/15/21 13:34 Ordered Saline Lock Insert [OM.PC] Routine Oth 04/15/21 13:51 Ordered Medication Orders Lactated Ringer's (Ringers, Lactated) 1,000 mls @ 999 mls/hr IV ASDIRECTED KIEL Last Admin: 04/15/21 14:21 Dose: 999 mls/hr Documented by: [email or web address] Sodium Chloride (Sodium Chloride 0.9% 10 Ml Syringe) 10 ml FLUSH ASDIRECTED PRN PRN Reason: Keep Vein Open Last Admin: 04/15/21 14:25 Dose: 10 ml Documented by: [id number] Labs: Laboratory Tests 04/15/21 04/15/21 04/15/21 Range/Units 13:34 13:40 13:40 WBC 10.4 (4.5-11.0) K/uL RBC 5.45 (4.30-5.90) M/uL Hgb 16.0 H (12.0-15.0) g/dL Hct 51.9 (40.0-54.0) % MCV 95 (80-98) fL MCH 29 (27-31) pg MCHC 31 L (32-36) % Plt Count 204 (150-400) K/uL Neut % (Auto) 77.2 H (36-66) % Lymph % (Auto) 13.7 L (24-44) % [place] % (Auto) 6.4 H (2-6) % Eos % (Auto) 1.9 L (2-4) % Baso % (Auto) 0.8 (0-1) % Sodium (140-148) mmol/L Potassium (3.6-5.2) mmol/L Chloride (100-108) mmol/L Carbon Dioxide (21-32) mmol/L Anion Gap (5.0-14.0) mmol/L BUN (7-18) mg/dL Creatinine (0.8-1.3) mg/dL Est Cr Clr Drug Dosing mL/min Estimated GFR (MDRD) (>60) Glucose (74-106) mg/dL Calcium (8.5-10.1) mg/dL Total Bilirubin (0.2-1.0) mg/dL AST (15-37) U/L ALT (12-78) U/L Alkaline Phosphatase (46-116) U/L C-Reactive Protein 0.19 (0.0-0.3) mg/dL NT-Pro-B Natriuret Pep (5-125) pg/mL Total Protein (6.4-8.2) g/dL Albumin (3.4-5.0) g/dL Globulin (2.3-3.5) g/dL Albumin/Globulin Ratio (1.2-2.2) Urine Color (YELLOW) Urine Appearance (CLEAR) Urine pH (5.0-8.0) Ur Specific [place] (1.008-1.030) Urine Protein (NEGATIVE) mg/dL Urine Glucose (UA) (NEGATIVE) mg/dL Urine Ketones (NEGATIVE) mg/dL Urine Occult Blood (NEGATIVE) Urine Nitrite (NEGATIVE) Urine Bilirubin (NEGATIVE) Urine Urobilinogen (0.2-1.0) EU/dL Ur Leukocyte Esterase (NEGATIVE) Urine RBC (0-5) Urine WBC (0-5) Ur Epithelial Cells Amorphous Sediment Urine Bacteria Urine Mucus Influenza Type A RNA Negative (NEGATIVE) RSV RNA (INAAT) Negative (NEGATIVE) Influenza Type B RNA Negative (NEGATIVE) SARS-CoV-2 RNA (MAURICE) Negative (NEGATIVE) 04/15/21 04/15/21 04/15/21 Range/Units 13:40 13:40 14:08 WBC (4.5-11.0) K/uL RBC (4.30-5.90) M/uL Hgb (12.0-15.0) g/dL Hct (40.0-54.0) % MCV (80-98) fL MCH (27-31) pg MCHC (32-36) % Plt Count (150-400) K/uL Neut % (Auto) (36-66) % Lymph % (Auto) (24-44) % [place] % (Auto) (2-6) % Eos % (Auto) (2-4) % Baso % (Auto) (0-1) % Sodium 139 L (140-148) mmol/L Potassium 4.7 (3.6-5.2) mmol/L Chloride 102 (100-108) mmol/L Carbon Dioxide 28 (21-32) mmol/L Anion Gap 13.7 (5.0-14.0) mmol/L BUN 15 (7-18) mg/dL Creatinine 1.0 (0.8-1.3) mg/dL Est Cr Clr Drug Dosing 74.01 mL/min Estimated GFR (MDRD) > 60 (>60) Glucose 105 (74-106) mg/dL Calcium 9.3 (8.5-10.1) mg/dL Total Bilirubin 0.4 D (0.2-1.0) mg/dL AST 16 (15-37) U/L ALT 35 (12-78) U/L Alkaline Phosphatase 91 (46-116) U/L C-Reactive Protein (0.0-0.3) mg/dL NT-Pro-B Natriuret Pep 123 (5-125) pg/mL Total Protein 7.7 (6.4-8.2) g/dL Albumin 3.8 (3.4-5.0) g/dL Globulin 3.9 H (2.3-3.5) g/dL Albumin/Globulin Ratio 1.0 L (1.2-2.2) Urine Color Yellow (YELLOW) Urine Appearance Clear (CLEAR) Urine pH 6.0 (5.0-8.0) Ur Specific [place] 1.020 (1.008-1.030) Urine Protein Negative (NEGATIVE) mg/dL Urine Glucose (UA) Negative (NEGATIVE) mg/dL Urine Ketones Negative (NEGATIVE) mg/dL Urine Occult Blood Negative (NEGATIVE) Urine Nitrite Negative (NEGATIVE) Urine Bilirubin Negative (NEGATIVE) Urine Urobilinogen 0.2 (0.2-1.0) EU/dL Ur Leukocyte Esterase Negative (NEGATIVE) Urine RBC 0-5 (0-5) Urine WBC 0-5 (0-5) Ur Epithelial Cells Occasional Amorphous Sediment Rare Urine Bacteria Rare Urine Mucus Rare Influenza Type A RNA (NEGATIVE) RSV RNA (INAAT) (NEGATIVE) Influenza Type B RNA (NEGATIVE) SARS-CoV-2 RNA (MAURICE) (NEGATIVE) Meds: Medications Generic Name Dose Route Start Last Admin Trade Name Freq PRN Reason Stop Dose Admin Lactated Ringer's 1,000 mls @ 999 mls/hr 04/15/21 13:45 04/15/21 14:21 Ringers, Lactated IV 999 mls/hr ASDIRECTED KIEL Administration Sodium Chloride 10 ml 04/15/21 13:51 04/15/21 14:25 Sodium Chloride 0.9% 10 Ml Syringe FLUSH 10 ml ASDIRECTED PRN Administration Keep Vein Open Discontinued Medications Generic Name Dose Route Start Last Admin Trade Name Freq PRN Reason Stop Dose Admin Albuterol/Ipratropium 3 ml 04/15/21 14:56 Albuterol/Ipratropium 3.0-0.5 Mg/3 Ml Neb Soln NEB 04/15/21 14:57 ONETIME ONE Methylprednisolone Sodium Succinate 125 mg 04/15/21 13:52 04/15/21 14:25 Methylprednisolone Sodium Succinate 125 Mg/2 Ml Sdv IVPUSH 04/15/21 13:53 125 mg ONETIME ONE Administration - Re-Assessments/Exams Free Text/Narrative Re-Assessment/Exam: 04/15/21 15:30 chest xray revealed no effusions and no infiltrates. He does have copd. Departure - Departure Time of Disposition: 15:19 Disposition: Home, Self-Care 01 Condition: Fair Clinical Impression: COPD exacerbation, Bronchitis - Discharge Information Referrals: Maxi Haro MD [Primary Care Provider] - Forms: ED Department Discharge Care Plan Goals: increase nebs to at least tid. , increase predisone to 20 mg daily for 3 day, 10 mg for 3 days then resume 5 mg daily, zithromax 500mg now and then 250 daily for 5 days, Sepsis Event Note (ED) - Evaluation Sepsis Screening Result: Possible Sepsis Risk - Focused Exam Vital Signs: Vital Signs Temp Pulse Resp BP Pulse Ox 04/15/21 13:01 36.8 C 111 H 24 H 147/86 H 93 L 04/15/21 12:43 36.8 C 111 H 24 H 147/86 H 93 L - My Orders Last 24 Hours: My Active Orders 04/15/21 13:34 Isolation [COMM] Stat 04/15/21 13:45 Lactated Ringers [Ringers, Lactated] 1,000 ml IV ASDIRECTED 04/15/21 13:51 Sodium Chloride 0.9% [Saline Flush] 10 ml FLUSH ASDIRECTED PRN Saline Lock Insert [OM.PC] Routine 04/15/21 14:56 RT Aerosol Therapy [RC] ASDIRECTED - Assessment/Plan Last 24 Hours: My Active Orders 04/15/21 13:34 Isolation [COMM] Stat 04/15/21 13:45 Lactated Ringers [Ringers, Lactated] 1,000 ml IV ASDIRECTED 04/15/21 13:51 Sodium Chloride 0.9% [Saline Flush] 10 ml FLUSH ASDIRECTED PRN Saline Lock Insert [OM.PC] Routine 04/15/21 14:56 RT Aerosol Therapy [RC] ASDIRECTED
[2021-04-15] MEDS ORDERED: Sodium Chloride 0.9% 10 ML Syringe FLUSH PRN (13:51)
[2021-04-15] MEDS ORDERED: methylPREDNISolone Sodium Succinate 125 MG/2 ML SDV IVPUSH ONE (13:52)
--- NOTE | 2021-04-15 14:10 | CR ---
CHEST: Portable 04/15/2021 at 1:51 PM CLINICAL HISTORY:SOB COMPARISON:2019 FINDINGS: The heart size, pulmonary vascularity and hilar structures are normal. No infiltrate effusion or pneumothorax is seen. Lungs are hyperaerated. There are atherosclerotic changes in the aorta. IMPRESSION: No acute cardiopulmonary process Mild hyperaeration
[2021-04-15 14:26] LABS: CORONAVIRUS COVID-19 NAA NEGATIVE (NEGATIVE)
[2021-04-15] MEDS ORDERED: Albuterol/Ipratropium 3.0-0.5 MG/3 ML Neb Soln NEB ONE (14:56)
== END 2021-04-15 15:48 | disposition home or self-care (01) ==
LOC: JP.ED 11:04
DX: J44.1 Chronic obstructive pulmonary disease with (acute) exacerbation (principal); Z72.0 Tobacco use; Z20.822 Contact with and (suspected) exposure to COVID-19
CPT/HCPCS: 0241U; 36415; 71045; 80053; 81001; 83880; 85025; 86140; 94640; 96374; 99284; 99285; J2930; J7120; J7620-GY

== ENCOUNTER 2024-06-19 11:30 | Emergency (ER) | payer MEDICARE ==
[2024-06-19 12:17] LABS: BASOPHILS ABSOLUTE AUTO 0.06 K/uL (0.00-0.10); BASOPHILS PERCENT AUTO 0.4 % (0.1-1.3); EOSINOPHILS ABSOLUTE AUTO 0.09 K/uL (0.00-0.40); EOSINOPHILS PERCENT AUTO 0.6 % (0.0-5.4); HEMOGLOBIN 13.7 g/dL (12.9-16.9); IMMATURE GRAN ABSOLUTE AUTO 0.26 K/uL (0.00-0.23); IMMATURE GRAN PERCENT AUTO 1.6 % (0.0-0.7); LYMPHOCYTES ABSOLUTE AUTO 1.14 K/uL (0.8-3.3); MEAN CORPUSCULAR HGB CONC 31.9 g/dL (31.6-35.5); MEAN CORPUSCULAR VOLUME 94.3 fL (81.4-99.0); MONOCYTES ABSOLUTE AUTO 1.14 K/uL (0.20-0.90); NEUTROPHILS ABSOLUTE AUTO 13.56 K/uL (1.0-7.6); NEUTROPHILS PERCENT AUTO 83.4 % (40.0-78.1); PLATELET COUNT,PLT 241 K/uL (130-375); RED BLOOD CELL COUNT 4.56 M/uL (4.14-5.76); WHITE BLOOD CELL COUNT,WBC 16.3 K/uL (3.2-11.0)
[2024-06-19 12:38] LABS: A/G RATIO 0.7 (1.2-2.2); ALANINE AMINOTRANSFERASE,ALT 26 U/L (12-78); ALKALINE PHOSPHATASE 97 U/L (46-116); ANION GAP 7.9 mmol/L (5.0-14.0); ASPARTATE AMNIOTRANSFERASE,AST 11 U/L (15-37); BILIRUBIN TOTAL 0.4 mg/dL (0.2-1.0); BLOOD UREA NITROGEN,BUN 13 mg/dL (7-18); CALCIUM 9.2 mg/dL (8.5-10.1); CARBON DIOXIDE,CO2 32 mmol/L (21-32); CHLORIDE,CL 101 mmol/L (100-108); CREATININE 0.9 mg/dL (0.8-1.3); ESTIMATED GFR 92 mL/min (>60); GLUCOSE RANDOM 109 mg/dL (74-106); POTASSIUM,K 4.2 mmol/L (3.6-5.2); PROTEIN TOTAL,TP 7.1 g/dL (6.4-8.2); SODIUM,NA 141 mmol/L (140-148)
[2024-06-19] MEDS: Sodium Chloride 0.9% 10 ML Syringe FLUSH ONE (14:51)
[2024-06-19] MEDS: Iopamidol 612 MG/ML 100 ML Bottle IV SCH (14:51)
[2024-06-19] MEDS: Sodium Chloride 0.9% 100 ML IV SCH (14:52)
[2024-06-19 14:56] LABS: APPEARANCE,URINE CLEAR (CLEAR); BILIRUBIN,URINE NEGATIVE (NEGATIVE); COLOR,URINE YELLOW (YELLOW); GLUCOSE,URINE NEGATIVE (NEGATIVE); KETONES,URINE NEGATIVE (NEGATIVE); LEUKOCYTE ESTERASE,URINE NEGATIVE (NEGATIVE); NITRITE,URINE NEGATIVE (NEGATIVE); OCCULT BLOOD,URINE NEGATIVE (NEGATIVE); PROTEIN,URINE NEGATIVE (NEGATIVE)
[2024-06-19 15:00] LABS: AMORPHOUS SEDIMENT,URINE RARE; BACTERIA,URINE NOT SEEN; EPITHELIAL CELLS,URINE NOT SEEN; MUCUS,URINE NOT SEEN; RBC,URINE NOT SEEN (0-5); WBC,URINE NOT SEEN (0-5)
[2024-06-19] MEDS: Morphine 2 MG/ML SYRINGE IVPUSH ONE (16:23)
[2024-06-19] MEDS: Piperacillin/Tazobactam 4.5 GM in Sodium Chloride 0.9% 100 ML IV ONE (16:30)
[2024-06-19] MEDS: HYDROmorphone 1 MG/ML Syringe IVPUSH ONE (16:48)
[2024-06-19] MEDS: Sodium Chloride 0.9% 1,000 ML IV SCH (17:03)
[2024-06-19 17:17] VITALS: BP 146/87
[2024-06-19 17:32] VITALS: PULSE 109
== END 2024-06-19 20:23 ==
LOC: JP.ED 11:30
DX: K65.1 Peritoneal abscess (principal); J44.9 Chronic obstructive pulmonary disease, unspecified; Z79.51 Long term (current) use of inhaled steroids; Z88.8 Allergy status to other drugs, medicaments and biological substances
CPT/HCPCS: 36415; 74018; 74177; 80053; 81001; 83605; 83690; 85025; 87040; 93005; 96361; 96365; 96366; 96367; 96375; 99285; J1170; J2270; J2543; J3370; J3490; J7030; J7050; Q9967

== ENCOUNTER 2024-07-29 12:19 | Inpatient (IN) | payer MEDICARE ==
[2024-07-29] MEDS ORDERED: Sodium Chloride 0.9% 10 ML Syringe FLUSH PRN ×2 (13:58→14:04)
[2024-07-29 14:03] LABS: BASOPHILS ABSOLUTE AUTO 0.07 K/uL (0.00-0.10); BASOPHILS PERCENT AUTO 0.3 % (0.1-1.3); EOSINOPHILS ABSOLUTE AUTO 0.15 K/uL (0.00-0.40); EOSINOPHILS PERCENT AUTO 0.7 % (0.0-5.4); HEMATOCRIT 40.7 % (38.4-49.7); HEMOGLOBIN 12.8 g/dL (12.9-16.9); IMMATURE GRAN ABSOLUTE AUTO 0.17 K/uL (0.00-0.23); IMMATURE GRAN PERCENT AUTO 0.8 % (0.0-0.7); LYMPHOCYTES ABSOLUTE AUTO 1.11 K/uL (0.8-3.3); MEAN CORPUSCULAR HGB CONC 31.4 g/dL (31.6-35.5); MEAN CORPUSCULAR VOLUME 92.1 fL (81.4-99.0); MONOCYTES ABSOLUTE AUTO 0.69 K/uL (0.20-0.90); MONOCYTES PERCENT AUTO 3.1 % (3.3-12.6); NEUTROPHILS ABSOLUTE AUTO 20.08 K/uL (1.0-7.6); NEUTROPHILS PERCENT AUTO 90.1 % (40.0-78.1); PLATELET COUNT,PLT 379 K/uL (130-375); RED BLOOD CELL COUNT 4.42 M/uL (4.14-5.76); WHITE BLOOD CELL COUNT,WBC 22.3 K/uL (3.2-11.0)
[2024-07-29] MEDS ORDERED: Naloxone 0.4 MG/ML SDV IVPUSH PRN ×4 (14:04→18:13)
[2024-07-29 14:14] LABS: A/G RATIO 0.7 (1.2-2.2); ALANINE AMINOTRANSFERASE,ALT 23 U/L (12-78); ALBUMIN 3.1 g/dL (3.4-5.0); ALKALINE PHOSPHATASE 91 U/L (46-116); ASPARTATE AMNIOTRANSFERASE,AST 13 U/L (15-37); BILIRUBIN TOTAL 0.4 mg/dL (0.2-1.0); BLOOD UREA NITROGEN,BUN 19 mg/dL (7-18); C-REACTIVE PROTEIN 5.83 mg/dL (<0.50); CARBON DIOXIDE,CO2 34 mmol/L (21-32); CHLORIDE,CL 102 mmol/L (100-108); CREATININE 0.9 mg/dL (0.8-1.3); ESTIMATED GFR 92 mL/min (>60); GLUCOSE RANDOM 118 mg/dL (74-106); POTASSIUM,K 4.3 mmol/L (3.6-5.2); PROTEIN TOTAL,TP 7.6 g/dL (6.4-8.2); SODIUM,NA 141 mmol/L (140-148)
[2024-07-29 14:16] LABS: ANION GAP 9.3 mmol/L (5.0-14.0)
[2024-07-29] MEDS: Sodium Chloride 0.9% 1,000 ML IV SCH ×2 (14:17→19:41)
[2024-07-29] MEDS: HYDROmorphone 0.5 MG/0.5 ML Syringe IVPUSH ONE ×4 (14:21→18:25)
[2024-07-29] MEDS: Ondansetron 4 MG/2 ML SDV IVPUSH ONE (14:21)
[2024-07-29] MEDS: Iopamidol 612 MG/ML 100 ML Bottle IV SCH (15:34)
[2024-07-29] MEDS: Sodium Chloride 0.9% 10 ML Syringe FLUSH PRN (15:34)
[2024-07-29] MEDS: Sodium Chloride 0.9% 100 ML IV SCH (15:34)
[2024-07-29] MEDS: Piperacillin/Tazobactam 4.5 GM in Sodium Chloride 0.9% 100 ML IV ONE (16:20)
[2024-07-29] MEDS ORDERED: HYDROmorphone 0.5 MG/0.5 ML Syringe IVPUSH PRN (17:35)
[2024-07-29] MEDS ORDERED: Albuterol 0.083% 2.5 MG/3 ML Neb Soln NEB PRN (18:43)
[2024-07-29] MEDS ORDERED: Ondansetron 4 MG/2 ML SDV IV PRN (18:43)
[2024-07-29] MEDS ORDERED: HYDROmorphone 1 MG/ML Syringe IVPUSH PRN (18:43)
[2024-07-29] MEDS: Piperacillin/Tazobactam 4.5 GM in Sodium Chloride 0.9% 100 ML IV SCH (19:40)
[2024-07-29] MEDS: predniSONE 5 MG Tab PO SCH (20:25)
[2024-07-29] MEDS: Pantoprazole 40 MG Tab.CR PO SCH (20:25)
[2024-07-29] MEDS: Albuterol/Ipratropium 3.0-0.5 MG/3 ML Neb Soln NEB SCH (20:25)
[2024-07-29] MEDS: Formoterol/Mometasone 100-5 MCG 8.8 GM Inhaler INH SCH (20:25)
[2024-07-29] MEDS: Lactobacillus Rhamnosus GG (Probiotic) Cap PO SCH (20:25)
[2024-07-29] MEDS: HYDROmorphone 0.5 MG/0.5 ML Syringe IVPUSH PRN (22:37)
[2024-07-30 06:33] LABS: HEMATOCRIT 34.6 % (38.4-49.7); MEAN CORPUSCULAR HEMOGLOBIN 29.2 pg (31.6-35.5); MEAN CORPUSCULAR HGB CONC 31.8 g/dL (31.6-35.5); MEAN CORPUSCULAR VOLUME 91.8 fL (81.4-99.0); RED BLOOD CELL COUNT 3.77 M/uL (4.14-5.76); WHITE BLOOD CELL COUNT,WBC 20.7 K/uL (3.2-11.0)
[2024-07-30 06:45] LABS: ANION GAP 6.6 mmol/L (5.0-14.0); CREATININE 0.7 mg/dL (0.8-1.3); EST CRCL DRUG DOSING (CG) 101.39 mL/min; INR 1.2; MAGNESIUM 1.7 mg/dL (1.8-2.4); POTASSIUM,K 4.2 mmol/L (3.6-5.2); PROTHROMBIN TIME 12.3 sec (9.2-10.6)
[2024-07-30] MEDS: Albuterol/Ipratropium 3.0-0.5 MG/3 ML Neb Soln NEB SCH (07:04)
[2024-07-30] MEDS: Magnesium Oxide 400 MG Tab PO SCH (08:48)
[2024-07-30] MEDS: Magnesium Sulfate/Water Premix 2 GM in Premix Bag 1 BAG IV SCH (08:48)
[2024-07-30] MEDS: Piperacillin/Tazobactam/Dext 4.5 GM in Premix Bag 1 BAG IV SCH (11:22)
[2024-07-30] MEDS ORDERED: Naloxone 0.4 MG/ML SDV IVPUSH PRN (12:37)
[2024-07-30] MEDS ORDERED: Flumazenil 0.1 MG/ML 5 ML MDV IVPUSH PRN (12:37)
[2024-07-30] MEDS: fentaNYL 100 MCG/2 ML SDV IVPUSH ONE (14:27)
[2024-07-30] MEDS: Midazolam 1 MG/ML 2 ML SDV IVPUSH ONE (14:28)
[2024-07-30] MEDS: Lidocaine 1% 20 ML MDV INJECT ONE (14:34)
[2024-07-30] MEDS ORDERED: Vancomycin 1 GM SDV IV SCH (15:00)
[2024-07-30] MEDS: Formoterol/Mometasone 100-5 MCG 8.8 GM Inhaler INH SCH (19:29)
[2024-07-30] MEDS: Acetaminophen 325 MG Tab PO PRN (19:34)
[2024-07-30] MEDS ORDERED: oxyCODONE 5 MG Tab PO PRN (19:38)
[2024-07-31 05:49] LABS: HEMATOCRIT 34.1 % (38.4-49.7); HEMOGLOBIN 10.8 g/dL (12.9-16.9); MEAN CORPUSCULAR HEMOGLOBIN 29.3 pg (31.6-35.5); MEAN CORPUSCULAR HGB CONC 31.7 g/dL (31.6-35.5); MEAN CORPUSCULAR VOLUME 92.7 fL (81.4-99.0); RED BLOOD CELL COUNT 3.68 M/uL (4.14-5.76); WHITE BLOOD CELL COUNT,WBC 19.9 K/uL (3.2-11.0)
[2024-07-31 06:11] LABS: CALCIUM 9.3 mg/dL (8.5-10.1); CREATININE 0.8 mg/dL (0.8-1.3); EST CRCL DRUG DOSING (CG) 88.72 mL/min; MAGNESIUM 1.9 mg/dL (1.8-2.4); POTASSIUM,K 4.3 mmol/L (3.6-5.2); VANCOMYCIN TROUGH 8.7 ug/mL (10.0-20.0)
[2024-07-31 06:18] LABS: ANION GAP 10.3 mmol/L (5.0-14.0)
[2024-07-31] MEDS: Acetaminophen/HYDROcodone 325-5 MG Tab PO PRN (10:52)
[2024-07-31] MEDS: Sennosides/Docusate Sodium 50-8.6 MG Tab PO PRN (10:53)
[2024-07-31] MEDS: Ondansetron 4 MG Tab.DIS PO PRN (18:44)
[2024-08-01 05:09] LABS: HEMATOCRIT 33.6 % (38.4-49.7); HEMOGLOBIN 10.5 g/dL (12.9-16.9); MEAN CORPUSCULAR HEMOGLOBIN 28.9 pg (31.6-35.5); MEAN CORPUSCULAR HGB CONC 31.3 g/dL (31.6-35.5); MEAN CORPUSCULAR VOLUME 92.6 fL (81.4-99.0); RED BLOOD CELL COUNT 3.63 M/uL (4.14-5.76); WHITE BLOOD CELL COUNT,WBC 18.5 K/uL (3.2-11.0)
[2024-08-01 05:25] LABS: CALCIUM 9.4 mg/dL (8.5-10.1); CREATININE 0.8 mg/dL (0.8-1.3); EST CRCL DRUG DOSING (CG) 88.72 mL/min; POTASSIUM,K 4.1 mmol/L (3.6-5.2)
[2024-08-01 05:29] LABS: ANION GAP 12.1 mmol/L (5.0-14.0)
[2024-08-01] MEDS: Sodium Chloride 0.9% 10 ML Syringe FLUSH PRN (07:10)
[2024-08-01] MEDS: Sodium Chloride 0.9% 80 ML IV ONE (07:10)
[2024-08-01] MEDS: Iopamidol 612 MG/ML 100 ML Bottle IV PRN (07:12)
[2024-08-01] MEDS: Magnesium Hydroxide 400 MG/5 ML Susp 30 ML Cup PO PRN (08:13)
[2024-08-02 05:33] LABS: HEMATOCRIT 32.9 % (38.4-49.7); HEMOGLOBIN 10.4 g/dL (12.9-16.9); MEAN CORPUSCULAR HEMOGLOBIN 28.8 pg (31.6-35.5); MEAN CORPUSCULAR HGB CONC 31.6 g/dL (31.6-35.5); MEAN CORPUSCULAR VOLUME 91.1 fL (81.4-99.0); RED BLOOD CELL COUNT 3.61 M/uL (4.14-5.76); WHITE BLOOD CELL COUNT,WBC 16.7 K/uL (3.2-11.0)
[2024-08-02] MEDS: Iopamidol 612 MG/ML 100 ML Bottle IV STA (05:35)
[2024-08-02] MEDS: Sodium Chloride 0.9% 80 ML IV STA (05:37)
[2024-08-02 05:50] LABS: CALCIUM 9.5 mg/dL (8.5-10.1); CREATININE 0.9 mg/dL (0.8-1.3); EST CRCL DRUG DOSING (CG) 78.86 mL/min; POTASSIUM,K 4.2 mmol/L (3.6-5.2)
[2024-08-02 05:52] LABS: ANION GAP 11.2 mmol/L (5.0-14.0)
[2024-08-02] MEDS: Sodium Chloride 0.9% 1,000 ML IV SCH (07:50)
[2024-08-02] MEDS: Ertapenem 1 GM in Sodium Chloride 0.9% 50 ML IV SCH (09:28)
[2024-08-02 09:56] LABS: INR 1.1; PROTHROMBIN TIME 11.2 sec (9.2-10.6); PTT,PARTIAL THROMBOPLSTIN TIME 35.4 sec (21.8-27.3)
[2024-08-02] MEDS ORDERED: Naloxone 0.4 MG/ML SDV IVPUSH PRN (10:15)
[2024-08-02] MEDS ORDERED: Flumazenil 0.1 MG/ML 5 ML MDV IVPUSH PRN (10:15)
[2024-08-02] MEDS: Lidocaine 1% 20 ML MDV INJECT ONE (13:31)
[2024-08-02] MEDS: Polyethylene Glycol 3350 Powder 17 GM Packet PO ONE (17:40)
[2024-08-02] MEDS: Nicotine 14 MG/24 Hr Patch TRDERM PRN (17:40)
[2024-08-02] MEDS: Albuterol 6.7 GM Inhaler INH PRN (20:28)
[2024-08-02] MEDS: fentaNYL 100 MCG/2 ML SDV IVPUSH ONE (22:43)
[2024-08-02] MEDS: Midazolam 1 MG/ML 5 ML SDV IVPUSH ONE (22:43)
[2024-08-03 05:28] LABS: HEMATOCRIT 32.4 % (38.4-49.7); HEMOGLOBIN 10.3 g/dL (12.9-16.9); MEAN CORPUSCULAR HEMOGLOBIN 28.6 pg (31.6-35.5); MEAN CORPUSCULAR HGB CONC 31.8 g/dL (31.6-35.5); RED BLOOD CELL COUNT 3.6 M/uL (4.14-5.76); WHITE BLOOD CELL COUNT,WBC 13.9 K/uL (3.2-11.0)
[2024-08-03 11:15] VITALS: BP 150/72; PULSE 60
== END 2024-08-03 12:40 | disposition home or self-care (01) | DRG 391 ==
LOC: JP.ED 12:19 → JP.MS 17:36
PROVIDERS: ADMIT Internal Medicine; ATTEND Hospitalist
PROC: 0W9G3ZZ Drainage of Peritoneal Cavity, Percutaneous Approach (ICD-10-PCS; principal; 2024-08-02)
DX: K57.20 Diverticulitis of large intestine with perforation and abscess without bleeding (principal); K65.1 Peritoneal abscess; J96.11 Chronic respiratory failure with hypoxia; D72.829 Elevated white blood cell count, unspecified; J44.9 Chronic obstructive pulmonary disease, unspecified; F17.210 Nicotine dependence, cigarettes, uncomplicated; K42.9 Umbilical hernia without obstruction or gangrene; Z79.52 Long term (current) use of systemic steroids; Z79.51 Long term (current) use of inhaled steroids; Z79.899 Other long term (current) drug therapy; Z87.81 Personal history of (healed) traumatic fracture; Z88.8 Allergy status to other drugs, medicaments and biological substances
CPT/HCPCS: 36415; 71045 ×2; 74177; 80053; 83605; 84145; 85025; 86140; 87040 ×2; 96361; 96365; 96375; 96376; 99285 ×2; J1170 ×2; J2405; J2543; J3490 ×3; J7030; Q9967; 36569; 49405; 49406; 49406-26; 77012; 77012-26; 80048; 80202; 83735; 85027; 85610; 85730; 87070; 87077; 87186; 87205; 94640; 99223; 99232; 99238; A9270-GY; C1729; C1751; J1335; J2250; J3010; J3370; J3475; J7050; J7512; J7620; Q0162

== ENCOUNTER 2024-08-12 12:18 | Emergency (ER) | payer MEDICARE ==
[2024-08-12 12:59] VITALS: BP 119/63; PULSE 115
== END 2024-08-12 15:15 | disposition left against medical advice (07) ==
LOC: JP.ED 12:18
DX: Z53.21 Procedure and treatment not carried out due to patient leaving prior to being seen by health care provider (principal)

== ENCOUNTER 2024-11-12 10:34 | Inpatient (IN) | payer MEDICARE, OTHER ==
[2024-11-12] MEDS: Furosemide 40 MG/4 ML VIAL IVPUSH ONE (10:45)
[2024-11-12 10:46] LABS: HEMATOCRIT 44.6 % (38.4-49.7); HEMOGLOBIN 13.2 g/dL (12.9-16.9); MEAN CORPUSCULAR HEMOGLOBIN 28.8 pg (31.6-35.5); MEAN CORPUSCULAR HGB CONC 29.6 g/dL (31.6-35.5); MEAN CORPUSCULAR VOLUME 97.2 fL (81.4-99.0); PLATELET COUNT,PLT 290 K/uL (130-375); RED BLOOD CELL COUNT 4.59 M/uL (4.14-5.76)
[2024-11-12 10:50] LABS: WHITE BLOOD CELL COUNT,WBC 33.2 K/uL (3.2-11.0)
[2024-11-12] MEDS: Piperacillin/Tazobactam 4.5 GM in Sodium Chloride 0.9% 100 ML IV ONE (11:04)
[2024-11-12 11:09] LABS: BASE EXCESS ARTERIAL -0.8 mm/L; CARBOXYHEMOGLOBIN 1.2 % (0.0-1.6); METHEMOGLOBIN 1.1 %; O2 SATURATION ARTERIAL 86.2 % (95.0-98.0); OXYHEMOGLOBIN 84.2 %; PO2 ARTERIAL 58.6 mmHg (75.0-100.0); TOTAL HEMOGLOBIN 13.9 g/dL (13.5-18.0)
[2024-11-12 11:12] LABS: A/G RATIO 0.7 (1.2-2.2); ALANINE AMINOTRANSFERASE,ALT 302 U/L (12-78); ALBUMIN 3.1 g/dL (3.4-5.0); ALKALINE PHOSPHATASE 121 U/L (46-116); ASPARTATE AMNIOTRANSFERASE,AST 134 U/L (15-37); BILIRUBIN TOTAL 0.4 mg/dL (0.2-1.0); BLOOD UREA NITROGEN,BUN 50 mg/dL (7-18); C-REACTIVE PROTEIN 11.86 mg/dL (<0.50); CALCIUM 9.2 mg/dL (8.5-10.1); CARBON DIOXIDE,CO2 33 mmol/L (21-32); CHLORIDE,CL 100 mmol/L (100-108); CREATININE 1.7 mg/dL (0.8-1.3); EST CRCL DRUG DOSING (CG) 41.75 mL/min; ESTIMATED GFR 43 mL/min (>60); GLUCOSE RANDOM 157 mg/dL (74-106); MAGNESIUM 2.2 mg/dL (1.8-2.4); PRO B-TYPE NATRIUR PEPT,BNPPRO 27255 pg/mL (5-125); PROTEIN TOTAL,TP 7.4 g/dL (6.4-8.2); SODIUM,NA 139 mmol/L (140-148)
[2024-11-12 11:18] LABS: TROPONIN I HIGH SENSITIVITY 3573.9 pg/mL (<=60.3)
[2024-11-12 11:26] LABS: APPEARANCE,URINE CLEAR (CLEAR); BILIRUBIN,URINE SMALL (NEGATIVE); COLOR,URINE YELLOW (YELLOW); GLUCOSE,URINE NEGATIVE (NEGATIVE); KETONES,URINE NEGATIVE (NEGATIVE); LEUKOCYTE ESTERASE,URINE NEGATIVE (NEGATIVE); NITRITE,URINE NEGATIVE (NEGATIVE); OCCULT BLOOD,URINE NEGATIVE (NEGATIVE); PH,URINE 5.5 (5.0-8.0); PROTEIN,URINE 100 mg/dL (NEGATIVE)
[2024-11-12 11:33] LABS: BAND ABSOLUTE MAN 1.33 K/uL; BAND PERCENT MAN 4 % (5-11); EOSINOPHILS ABSOLUTE MAN 0.33 K/uL (0.00-0.40); EOSINOPHILS PERCENT MAN 1 % (2-4); LYMPHOCYTES ABSOLUTE MAN 0.66 K/uL (0.8-3.3); LYMPHOCYTES PERCENT MAN 2 % (24-44); MONOCYTES ABSOLUTE MAN 1.66 K/uL (0.20-0.90); MONOCYTES PERCENT MAN 5 % (2-6); NEUTROPHILS ABSOLUTE MAN 29.22 K/uL (1.0-7.6); SEG NEUTROPHILS PERCENT MAN 88 % (36-66)
[2024-11-12 11:38] LABS: AMORPHOUS SEDIMENT,URINE FEW; BACTERIA,URINE FEW; EPITHELIAL CELLS,URINE FEW; MUCUS,URINE NOT SEEN; RBC,URINE 0-5 (0-5); WBC,URINE 0-5 (0-5)
[2024-11-12 11:53] LABS: BASE EXCESS ARTERIAL -0.6 mm/L; BICARBONATE,ARTERIAL 28.6 mmol/L (22.0-26.0); CARBOXYHEMOGLOBIN 1.3 % (0.0-1.6); METHEMOGLOBIN 0.9 %; OXYHEMOGLOBIN 91.9 %; PO2 ARTERIAL 76.3 mmHg (75.0-100.0); TOTAL HEMOGLOBIN 13.6 g/dL (13.5-18.0)
[2024-11-12 11:56] LABS: PCO2 ARTERIAL 71.4 mmHg (35.0-42.0)
[2024-11-12] MEDS: Aspirin 81 MG Tab.Chew PO ONE (13:47)
[2024-11-12] MEDS: Morphine 10 MG/0.5 ML Oral Syringe PO PRN (15:14)
[2024-11-12] MEDS ORDERED: Ondansetron 4 MG/2 ML SDV IV PRN (15:59)
[2024-11-12] MEDS ORDERED: Acetaminophen 325 MG Tab PO PRN (15:59)
[2024-11-12] MEDS ORDERED: Ondansetron 4 MG Tab.DIS PO PRN (15:59)
[2024-11-12] MEDS ORDERED: Sennosides/Docusate Sodium 50-8.6 MG Tab PO PRN (15:59)
[2024-11-12] MEDS ORDERED: Albuterol 0.083% 2.5 MG/3 ML Neb Soln NEB PRN (15:59)
[2024-11-12] MEDS ORDERED: Magnesium Hydroxide 400 MG/5 ML Susp 30 ML Cup PO PRN (15:59)
[2024-11-12] MEDS: LORazepam ORAL Concentrate 1MG/0.5ML U/D SL PRN (16:01)
[2024-11-12 21:24] VITALS: BP 116/70; PULSE 119
== END 2024-11-12 20:48 | disposition expired | DRG 951 ==
LOC: JP.ED 10:34 → JP.MS 14:19
PROVIDERS: ADMIT Internal Medicine; ATTEND Internal Medicine
PROC: 5A09357 Assistance with Respiratory Ventilation, Less than 24 Consecutive Hours, Continuous Positive Airway Pressure (ICD-10-PCS; principal; 2024-11-12)
PROC: 4A133R1 Monitoring of Arterial Saturation, Peripheral, Percutaneous Approach (ICD-10-PCS; 2024-11-12)
DX: J96.01 Acute respiratory failure with hypoxia (principal); J96.02 Acute respiratory failure with hypercapnia; Z51.5 Encounter for palliative care; J18.9 Pneumonia, unspecified organism; D72.829 Elevated white blood cell count, unspecified; J44.9 Chronic obstructive pulmonary disease, unspecified; I21.4 Non-ST elevation (NSTEMI) myocardial infarction; J96.21 Acute and chronic respiratory failure with hypoxia; J96.22 Acute and chronic respiratory failure with hypercapnia; J44.0 Chronic obstructive pulmonary disease with (acute) lower respiratory infection; N17.9 Acute kidney failure, unspecified; E87.20 Acidosis, unspecified; Z66 Do not resuscitate; K42.9 Umbilical hernia without obstruction or gangrene; E87.5 Hyperkalemia; I50.9 Heart failure, unspecified; Z99.81 Dependence on supplemental oxygen; Z88.8 Allergy status to other drugs, medicaments and biological substances; Z79.51 Long term (current) use of inhaled steroids; Z79.899 Other long term (current) drug therapy; Z79.52 Long term (current) use of systemic steroids; Z87.81 Personal history of (healed) traumatic fracture; Z98.49 Cataract extraction status, unspecified eye; Z87.891 Personal history of nicotine dependence
CPT/HCPCS: 36415; 36600 ×2; 51702; 71045 ×2; 80053; 81001; 82803 ×2; 83605 ×2; 83735; 83880; 84145; 84484 ×2; 85025; 85379; 86140; 87040 ×2; 87086; 87428; 96365; 96375; 99285; A9270; J1940; J2543; J3490